=== PATIENT | male | born 1990 | race American Indian/Alaskan Native ===

== ENCOUNTER 2020-11-24 14:44 | Emergency (ER) | payer OTHER ==
[2020-11-24 15:03] VITALS: BP 130/80; PULSE 71; TEMP 98.2; BMI 25.0
[2020-11-24] MEDS ORDERED: SODIUM CHLORIDE 0.9% 500 ML INFUS.BAG IV ONE (15:32)
[2020-11-24] MEDS ORDERED: FAMOTIDINE 20 MG/50 ML IVPB 20 MG/50 ML MG IVPB ONE ×2 (15:32→16:26)
[2020-11-24 17:01] LABS: BASO % 0.3 % (0-2.0); EOS % 4.2 % (0-4.5); HEMATOCRIT 48.1 % (35.4-49); LYMPH % 16.5 % (8-40); MCH 29.9 pg (25.7-33.7); MCHC 33.2 g/dl (32.0-35.9); MEAN CELL VOLUME 90.1 fl (80-96); PLATELET COUNT 290 K/MM3 (134-434); RBC 5.34 M/mm3 (4.00-5.60); RDW 12.4 % (11.9-15.9); WHITE BLOOD COUNT 7.9 K/mm3 (4.0-10.0)
[2020-11-24 17:27] LABS: ALBUMIN 4.6 g/dl (3.4-5.0); CALCIUM 10.2 mg/dL (8.5-10.1)
[2020-11-24 17:28] LABS: BLOOD UREA NITROGEN 8.5 mg/dL (7-18)
[2020-11-24 17:31] LABS: CREATININE 0.9 mg/dL (0.55-1.3)
[2020-11-24 17:32] LABS: BILIRUBIN,TOTAL 1.1 mg/dL (0.2-1)
[2020-11-24 18:36] LABS: URINE APPEARANCE CLEAR; URINE BILIRUBIN NEGATIVE (NEGATIVE); URINE COLOR YELLOW; URINE GLUCOSE (UA) NEGATIVE (NEGATIVE); URINE KETONE NEGATIVE (NEGATIVE); URINE LEUK ESTERASE NEGATIVE (NEGATIVE); URINE NITRITE NEGATIVE (NEGATIVE); URINE PROTEIN NEGATIVE (NEGATIVE); URINE UROBILINOGEN 0.2 mg/dL (0.2-1.0)
[2020-11-24] MEDS ORDERED: MAG HYDROX/AL HYDROX/SIMETH 30 ML UNIT-DOSE CUP PO ONE (19:29)
[2020-11-24] MEDS ORDERED: MAG HYDROX/AL HYDROX/SIMETH 30 ML UNIT-DOSE CUP ONE (19:35)
[2020-11-25 10:12] LABS: SARS-CoV-2 NAA Not Detected (Not Detected)
== END 2020-11-24 20:43 | disposition home or self-care (01) ==
LOC: JER 14:44
PROC: 3E033GC Introduction of Other Therapeutic Substance into Peripheral Vein, Percutaneous Approach (ICD-10-PCS; principal; 2020-11-24)
DX: R10.84 Generalized abdominal pain (principal)
CPT/HCPCS: 36415; 71046-TC-FY; 74019-TC-FY; 76705-TC; 80053; 81003; 83690; 85025; 87086; 93005; 93010; 99285-25; C9803; U0003; U0005

== ENCOUNTER 2021-10-07 05:15 | Emergency (ER) | payer OTHER ==
[2021-10-07 05:19] VITALS: BP 102/63; PULSE 94; TEMP 97.9; BMI 25.8
[2021-10-07] MEDS: ALBUTEROL SO4 2.5/IPRATROPIUM 0.5 INH SOL 3 ML VIAL.NEB. NEB SCH ×3 (06:15→06:46)
[2021-10-07] MEDS ORDERED: ALBUTEROL SO4 2.5/IPRATROPIUM 0.5 INH SOL 3 ML VIAL.NEB. NEB ONE (06:40)
[2021-10-07] MEDS ORDERED: ALBUTEROL SO4 HFA INHALER IH ONE ×2 (07:10→07:25)
[2021-10-08 18:07] LABS: SARS-CoV-2 NAA Not Detected (Not Detected)
== END 2021-10-07 07:50 | disposition home or self-care (01) ==
LOC: JER 05:15
PROC: 3E0F7GC Introduction of Other Therapeutic Substance into Respiratory Tract, Via Natural or Artificial Opening (ICD-10-PCS; principal; 2021-10-07)
DX: J40 Bronchitis, not specified as acute or chronic (principal)
CPT/HCPCS: 71046-TC-FY; 87804; 94640; 99285-25; C9803; U0003; U0005

== ENCOUNTER 2021-10-25 23:54 | Emergency (ER) | payer OTHER ==
[2021-10-26 00:12] VITALS: BP 107/72; PULSE 90; TEMP 99.3; BMI 25.8
[2021-10-26] MEDS ORDERED: AZITHROMYCIN 250 MG TABLET PO ONE (03:14)
[2021-10-26] MEDS ORDERED: predniSONE 20 MG TABLET (UD) PO ONE (03:14)
[2021-10-26] MEDS ORDERED: predniSONE 20 MG TABLET (UD) ONE (03:16)
[2021-10-26] MEDS ORDERED: AZITHROMYCIN 250 MG TABLET ONE (03:16)
== END 2021-10-26 03:20 | disposition home or self-care (01) ==
LOC: JER 23:54
DX: R04.2 Hemoptysis (principal)
CPT/HCPCS: 71046-TC-FY; 99283-25